=== PATIENT | female | born 1980 | race Caucasian/White ===

== ENCOUNTER → 2017-01-10 | Outpatient (CLI) | payer BC ==
--- NOTE | 2017-01-10 15:31 | RAD ---
Indication: Fall and tailbone pain. Time of exam 1524 hours. Sacrococcygeal alignment appears normal. No fractures are seen. There is no subluxation. The sacral arcuate lines appear intact. The SI joints and symphysis are not widened. Impression: No acute abnormality is detected.
== END | disposition home or self-care (01) ==
LOC: DXRAD 15:05
PROVIDERS: ATTEND Family Medicine
DX: S30.0XXA Contusion of lower back and pelvis, initial encounter (principal); M53.3 Sacrococcygeal disorders, not elsewhere classified; W19.XXXA Unspecified fall, initial encounter; Y93.9 Activity, unspecified; Y92.89 Other specified places as the place of occurrence of the external cause; Y99.8 Other external cause status
CPT/HCPCS: 72220

== ENCOUNTER → 2017-01-15 | Outpatient (CLI) | payer BC ==
--- NOTE | 2017-01-15 10:34 | RAD ---
Examination: Ultrasound pelvis History: History of right-sided pelvic pain, history of ovarian cyst. Comparison: None available Technique: Transabdominal, transvaginal ultrasound examination the pelvis. Findings: The uterus measures 9.0 x 5.2 x 4.1 cm. The endometrium measures 3 mm in thickness. The right ovary measures 3.4 x 2.2 x 2.7 cm. The left ovary measures 4.1 x 1.9 x 3.3 cm. Small cystic structures identified in the cervix likely nabothian cysts. Blood flow identified in the right and left ovaries. Impression: 1. Few nabothian cysts identified in the cervix, otherwise unremarkable exam.
== END | disposition home or self-care (01) ==
LOC: US 09:27
PROVIDERS: ATTEND Family Medicine
DX: N88.8 Other specified noninflammatory disorders of cervix uteri (principal); N83.209 Unspecified ovarian cyst, unspecified side; Z87.42 Personal history of other diseases of the female genital tract
CPT/HCPCS: 76830; 76856

== ENCOUNTER → 2017-03-20 | Outpatient (CLI) | payer BC | LOC: LAB 14:34 | DX: Z00.5 Encounter for examination of potential donor of organ and tissue (principal) ==

== ENCOUNTER → 2018-03-22 | Outpatient (CLI) | payer BC | END | disposition home or self-care (01) | LOC: LAB 10:16 | PROVIDERS: ATTEND Obstetrics & Gynecology Reproductive Endocrinology | DX: E03.9 Hypothyroidism, unspecified (principal) | CPT/HCPCS: 84443 ==

== ENCOUNTER → 2018-10-17 | Outpatient (CLI) | payer BC ==
[2018-10-17 10:05] LABS: BASO # 0.1 x10^3/uL (0.0-0.2); BASO % 1 % (0-3); EOS # 0.2 x10^3/uL (0.0-0.7); EOS % 3 % (0-3); HEMOGLOBIN 13.4 g/dL (12.0-15.5); LYMPH # 1.8 x10^3/uL (1.0-4.8); LYMPH % 23 % (24-48); MEAN CORPUSCULAR HEMOGLOBIN 30 pg (25-35); MEAN CORPUSCULAR HGB CONC 34 g/dL (31-37); MEAN CORPUSCULAR VOLUME 90 fL (79-100); MONO # 0.5 x10^3/uL (0.0-1.1); MONO % 6 % (0-9); NEUT # 5.3 x10^3uL (1.8-7.7); NEUT % 68 % (31-73); PLATELET COUNT 290 x10^3/uL (140-400); RED BLOOD COUNT 4.43 x10^6/uL (3.50-5.40); RED CELL DISTRIBUTION WIDTH 13.8 % (11.5-14.5); WHITE BLOOD COUNT 7.9 x10^3/uL (4.0-11.0)
[2018-10-17 11:10] LABS: SEDIMENTATION RATE 15 (0-25)
== END | disposition home or self-care (01) ==
LOC: LAB 09:20
PROVIDERS: ATTEND Podiatrist Foot & Ankle Surgery
DX: T81.40XA Infection following a procedure, unspecified, initial encounter (principal); X58.XXXA Exposure to other specified factors, initial encounter; Y93.89 Activity, other specified; Y92.89 Other specified places as the place of occurrence of the external cause; Y99.8 Other external cause status
CPT/HCPCS: 36415; 85025; 85651; 86140

== ENCOUNTER → 2019-01-17 | Outpatient (CLI) | payer BC ==
--- NOTE | 2019-01-17 11:06 | RAD ---
DATE: 01/17/2019 EXAM: MAMMO RICKY SCREENING BILATERAL HISTORY: Routine screening COMPARISON: 11/07/2016 This study was interpreted with the benefit of Computerized Aided Detection (CAD). Breast Density: SCATTERED The breast parenchyma shows scattered fibroglandular densities. Breast parenchyma level B. FINDINGS: No new or enlarging breast densities are seen. No suspicious microcalcifications are evident. IMPRESSION: There is no mammographic evidence of malignancy in either breast. BI-RADS CATEGORY: 1 NEGATIVE RECOMMENDED FOLLOW-UP: 12M 12 MONTH FOLLOW-UP PQRS compliance statement: Patient information was entered into a reminder system with a target due date for the next mammogram. Mammography is a sensitive method for finding small breast cancers, but it does not detect them all and is not a substitute for careful clinical examination. A negative mammogram does not negate a clinically suspicious finding and should not result in delay in biopsying a clinically suspicious abnormality. "Our facility is accredited by the [employer] Mammography [employer]."
== END | disposition home or self-care (01) ==
LOC: MAMMO 08:17
PROVIDERS: ATTEND Family Medicine
DX: Z12.31 Encounter for screening mammogram for malignant neoplasm of breast (principal)
CPT/HCPCS: 77063; 77067

== ENCOUNTER → 2020-07-23 | Outpatient (CLI) | payer BC ==
--- NOTE | 2020-07-26 15:42 | RAD ---
DATE: 07/23/2020 2:39 PM EXAM: MAMMO RICKY SCREENING BILATERAL HISTORY: Screening COMPARISON: 01/17/2019 Bilateral CC and MLO views of the breasts were performed. Bilateral breast tomosynthesis was performed in CC and MLO projections. This study was interpreted with the benefit of Computerized Aided Detection (CAD). FINDINGS: Breast Density: SCATTERED The breast parenchyma shows scattered fibroglandular densities. Breast parenchyma level B No suspicious masses, microcalcifications or architectural distortion is present to suggest malignancy in either breast. The visualized axillae are unremarkable. IMPRESSION: No mammographic evidence of malignancy. BI-RADS CATEGORY: 1 NEGATIVE RECOMMENDED FOLLOW-UP: 12M 12 MONTH FOLLOW-UP Annual screening mammography is recommended, unless clinically indicated sooner based on symptoms or change in physical exam. PQRS compliance statement: Patient information was entered into a reminder system with a target due date for the next mammogram. Mammography is a sensitive method for finding small breast cancers, but it does not detect them all and is not a substitute for careful clinical examination. A negative mammogram does not negate a clinically suspicious finding and should not result in delay in biopsying a clinically suspicious abnormality. "Our facility is accredited by the [employer] Mammography Program."
== END ==
LOC: MAMMO 14:32
PROVIDERS: ATTEND Family Medicine
DX: Z12.31 Encounter for screening mammogram for malignant neoplasm of breast (principal)
CPT/HCPCS: 77063; 77067

== ENCOUNTER → 2020-09-13 | Outpatient (CLI) | payer BC ==
--- NOTE | 2020-09-13 20:16 | RAD ---
Three-view left knee radiographs to include AP and lateral radiographs of the left tibia and fibula CLINICAL HISTORY: Left knee and left leg pain. AP, lateral and oblique digital radiographs of the left knee were obtained. AP and lateral digital ra diographs of the left tibia and fibula were obtained. No fracture or dislocation of the left knee is seen. There is no radiographic evidence of a joint effusion. No fracture or dislocation of the left tibia or fibula is seen. No significant degenerative changes a re noted. IMPRESSION: Negative study. Electronically signed by: Cabrera Lacy MD (09/13/2020 8:13 PM) [id number]
== END ==
LOC: DXRAD 09-07 15:17
PROVIDERS: ATTEND Student in an Organized Health Care Education/Training Program
DX: M25.562 Pain in left knee (principal)
CPT/HCPCS: 73562; 73590

== ENCOUNTER 2020-10-22 11:22 | Emergency (ER) | payer BC ==
[~2020-10-22] VITALS: Ht 165.1 cm; Wt 109.0 kg
[2020-10-22 11:31] VITALS: BP 146/100
--- NOTE | 2020-10-22 11:41 | PHYS DOC ---
Past History Past Medical History: Fibromyalgia Past Surgical History: Appendectomy, Cholecystectomy, Other Additional Past Surgical Histo: LEFT FOOT SURGERY X 3 Alcohol Use: None General Adult EDM: Chief Complaint: ANKLE PROBLEM HPI: HPI: 40-year-old female past medical history fibromyalgia and obesity, presents to the ED with complaints of right lateral ankle pain that occured just [employer] after patient rolled her ankle while leaving the dental clinic. Patient states she fell but did not her head or lose consciousness. Cannot recall specific mechanism of injuring her ankle. Has not injured this joint before. No other associated knee or hip pain. Is unable to bear weight. Has not taken any pain medication prior to ED arrival. NKDA. Only prescribed medication is Flexeril. LMP 10/05/20. Denies any alcohol or drug use today, is clinically sober. Review of Systems: Review of Systems: Constitutional: Denies fever or chills Eyes: Denies change in visual acuity HENT: Denies nasal congestion or sore throat Respiratory: Denies cough or shortness of breath Cardiovascular: Denies chest pain or edema GI: Denies abdominal pain, nausea, vomiting, bloody stools or diarrhea : Denies dysuria or hematuria Musculoskeletal: Denies midline back pain or CVA tenderness Integument: Denies rash or diaphoresis Neurologic: Denies headache, midline neck pain, focal weakness or sensory changes Endocrine: Denies polyuria or polydipsia Lymphatic: Denies swollen glands Psychiatric: Denies depression or anxiety Physical Exam: PE: Constitutional: Well developed, well nourished, HENT: Normocephalic, atraumatic, no signs of head trauma Eyes: EOMI, conjunctiva normal, no discharge. Neck: Normal range of motion, supple, Cardiovascular: S1/2 present, regular rhythm Lungs & Thorax: Speaking in full sentences, bilateral equal chest rise, no tachypnea or increased work of breathing Abdomen: soft, no tenderness, Skin: Warm, dry, no erythema, no rash. [] Back: No midline tenderness, no CVA tenderness. [] Extremities: No tenderness, no cyanosis, right DP and PT pulses intact, cap refill less than 1 second, pain over right lateral malleoli with some swelling/no contusions/petechia, also has pain over anterior ankle joint, reports pain with metatarsal palpation "all of them hurt," no pain over right fibular head or right knee, Neurologic: Alert and oriented X 3, normal motor function, normal sensory function, no focal deficits noted. [] Psychologic: Affect normal, judgement normal, mood -has been crying Current Patient Data: Vital Signs: Vital Signs Date Time Temp Pulse Resp B/P (MAP) Pulse Ox O2 Delivery O2 Flow Rate FiO2 10/22/20 11:31 98.8 87 18 146/100 (115) 99 EKG: EKG: [] Radiology/Procedures: Radiology/Procedures: IMAGING REPORT Signed PATIENT: BARRETT MELENDEZ LACCOUNT: [id number] : 1980 LOCATION: ER AGE: 40 SEX: F EXAM STATUS: REG ER ORD. PHYSICIAN: ALIN AGUERO DO REASON: lateal right ankle pain PROCEDURE: FOOT RIGHT 3V Study: 1. XR EXAM OF ANKLE_RIGHT 3VIEWS 2. XR FOOT_RIGHT 3 VIEWS Indication: Right ankle pain. Comparison: None. Findings: Right ankle: No displaced fracture. Minimal irregularity at the lateral talar process but not definitively acute. The ankle mortise is symmetric noting the absence of weightbearing. Anterolateral soft tissue swelling. Right foot: No acute fracture. Small plantar calcaneal spur. Incidental note made of a prominent peroneal tubercle as seen on the oblique view. The Lisfranc alignment is within normal limits again noting the absence of weightbearing. Impression: Right ankle/foot: Anterolateral ankle soft tissue swelling but no fracture is identified. No traumatic malalignment considering nonweightbearing status. Electronically signed by: JIL JONES MD (10/22/2020 12:18 PM) [id number] DICTATED AND SIGNED BY: JIL JONES MD DATE: 10/22/20 1212 CC: WILLOW CASTELLANOS MD; ALIN AGUERO DO ~MTH0 0 Impressions: [PATIENT/GUARDIAN/FAMILY:"Patient"] informed of findings. [findings; splinting em:] applied by []. The splint is checked by [], with [Desc; good/appropriate /adequate/loose:"appropriate"] stabilization of the injury. Distal capillary refill {pe heart capillary fill: "normal"] and distal neurologic function [Neuro:"intact"] Heart Score: Risk Factors: Risk Factors: DM, Current or recent (<one month) smoker, HTN, HLP, family history of CAD, obesity. Risk Scores: Score 0 - 3: 2.5% MACE over next 6 weeks - Discharge Home Score 4 - 6: 20.3% MACE over next 6 weeks - Admit for Clinical Observation Score 7 - 10: 72.7% MACE over next 6 weeks - Early Invasive Strategies Course & Med Decision Making: Course & Med Decision Making Pertinent Labs and Imaging studies reviewed. (See chart for details) Concern for right ankle sprain after twisting her ankle. Patient was provided crutches and a right ankle splint. Recommend rice instructions and [id number] analgesia. Patient should not resolve within a few weeks recommend outpatient nonemergent orthopedic follow-up. Will discharge home with strict ED return precautions were given for severe pain, neurologic deficits or further/repeat injury. Encouraged urgent outpatient follow-up with PMD and orthopedic surgery if pain does not resolve or persist. Life-threatening processes were considered but are low suspicion at this time, given history, physical exam and ED workup. Pt was educated on all prescription medications and adverse effects. All patient's questions were answered and pt was stable at time of discharge. Life/limb-threatening differential includes but is not limited to, avascular necrosis, septic arthritis, malignancy, compartment syndrome, fr acture/ligamentous injury/overuse, decompression sickness, seronegative spondyloarthropathies, trauma including dislocation/fracture, Lyme disease, lupus, arthritis differentials, gout/pseudogout or decompression sickness. I spoken with the patient and her caregivers. I explained the patient's condition, diagnoses and treatment plan based on the information available to me at this time. I have answered the patient and her caregiver's questions and addressed any concerns. The patient and her caregivers have a good understanding of patient's diagnosis, condition and treatment plan as can be expected at this point. Vital signs have been stable. Patient's condition is stable and appropriate for discharge from the emergency department. Patient will pursue further outpatient evaluation with primary care physician or other designated or consulting physician as outlined in the discharge instructions. The patient and/or caregivers are agreeable to this plan of care and follow-up instructions have been explained in detail. The patient and/or caregivers have received these instructions in written form and have expressed an understanding of the discharge instructions. The patient and/or caregivers are aware that any significant change of condition or worsening of symptoms should prompt immediate return to this or the closest emergency department or call to [id number] Disclaimer: Krupa Disclaimer: This electronic medical record was generated, in whole or in part, using a voice recognition dictation system. Departure Departure: Impression: Primary Impression: Right ankle sprain Disposition: 01 DC HOME SELF CARE/HOMELESS Condition: STABLE Referrals: WILLOW CASTELLANOS MD (PCP) Patient Instructions: Ankle Sprain, Crutch Use Additional Instructions: FOLLOW UP WITH ORTHOPEDICS: [facility] [address] [facility], [place] [address] [place] [id number] EMERGENCY DEPARTMENT GENERAL DISCHARGE INSTRUCTIONS Thank you for coming to [facility] (ED) today and trusting us with you care. We trust that you had a positivie experience in our Emergency Department. If you wish to speak to the department management, you may call the director at [phone]. YOUR FOLLOW UP INSTRUCTIONS ARE FOLLOWS: 1. Do you have a private Doctor? If you do not have a private doctor, please ask for a resource list of physicians or clinics that may be able to assist you with follow up care. 2. The Emergency Physician has interpreted your x-rays. The X-Ray specialist will also review them. If there is a change in the findings, you will be notified in 48 hours when at all possible. 3. A lab test or culture has been done, your results will be reviewed and you will be notified if you need a change in treatment. ADDITIONAL INSTRUCTIONS AND INFORMATION: 1. Your care today has been supervised by a physician who is specially trained in emergency care. Many problems require more than one evaluation for a complete diagnosis and treatment. We recommend that you schedule your follow up appointment as recommended to ensure complete treatment of you illness or injury. If you are unable to obtain follow up care and continue to have a problem, or if your condition worsens, we recommend that you return to the ED. 2. We are not able to safely determine your condition over the phone nor are we able to give sound medical advice over the phone. For these safety reasons, if you call for medical advice we will ask you to come to the ED for further evaluation. 3. If you have any questions regarding these discharge instructions please call the ED at [phone]. SAFETY INFORMATION: In the interest of safety, wellness, and injury prevention; we encourage you to wear your sealbelt, if you smoke; quite smoking, and we encourage family to use a protective helmet for bicycling and other sporting events that present an increased risk for head injury. IF YOUR SYMPTOMS WORSEN OR NEW SYMPTOMS DEVELOP, OR YOU HAVE CONCERNS ABOUT YOUR CONDITION; OR IF YOUR CONDITION WORSENS WHILE YOU ARE WAITING FOR YOUR FOLLOW UP APPOINTMENT; EITHER CONTACT YOUR PRIMARY CARE DOCTOR, THE PHYSICIAN WHOSE NAME AND NUMBER YOU WERE GIVEN, OR RETURN TO THE ED IMMEDIATELY. ALIN AGUERO DO Oct 22, 2020 11:41
[2020-10-22] MEDS ORDERED: ACETAMINOPHEN 325 MG TABLET PO ONE (11:45)
[2020-10-22] MEDS ORDERED: IBUPROFEN 600 MG TABLET. PO ONE (11:45)
--- NOTE | 2020-10-22 12:21 | RAD ---
Study: 1. XR EXAM OF ANKLE_RIGHT 3VIEWS 2. XR FOOT_RIGHT 3 VIEWS Indication: Right ankle pain. Comparison: None. Findings: Right ankle: No displaced fracture. Minimal irregularity at the lateral talar process but not definitively acute. The ankle mortise is symmetric noting the absence of weightbearing. Anterolateral soft tissue swellin g. Right foot: No acute fracture. Small plantar calcaneal spur. Incidental note made of a prominent peroneal tubercl e as seen on the oblique view. The Lisfranc alignment is within normal limits again noting the absenc e of weightbearing. Impression: Right ankle/foot: Anterolateral ankle soft tissue swelling but no fracture is identified. No traumatic malalignment con sidering nonweightbearing status. Electronically signed by: JIL JONES MD (10/22/2020 12:18 PM) [id number]
== END 2020-10-22 12:51 | disposition home or self-care (01) ==
LOC: ER 11:22
DX: S93.401A Sprain of unspecified ligament of right ankle, initial encounter (principal); M79.7 Fibromyalgia; W18.39XA Other fall on same level, initial encounter; Y93.89 Activity, other specified; Y92.89 Other specified places as the place of occurrence of the external cause; Y99.8 Other external cause status
CPT/HCPCS: 73610; 73630; 99284; L4350

== ENCOUNTER → 2021-10-26 | Outpatient (CLI) | payer BC ==
--- NOTE | 2021-10-26 09:08 | RAD ---
INDICATION : Routine Screening. COMPARISON: Priors including January 2019 TECHNIQUE: Standard mammogram screening views of the bilateral breasts were obtained with 3D tomosynt hesis. CAD was utilized. FINDINGS: The breasts are scattered density. No definite suspicious mass. IMPRESSION: BI-RADS Category 1: Negative. Recommend repeat screening examination in one year. The patient was placed into the recall system with a suggested recall date for follow up imaging. Mammography is the most sensitive method for finding small breast cancers, but it does not detect the m all and is not a substitute for careful clinical examination. A negative mammogram does not negate a clinically suspicious finding and should not result in delay in biopsying a clinically suspicious abnormality. Electronically signed by: Tristan Reyes MD (10/26/2021 9:06 AM) [id number]
== END ==
LOC: MAMMO 07:44
PROVIDERS: ATTEND Student in an Organized Health Care Education/Training Program
DX: Z12.31 Encounter for screening mammogram for malignant neoplasm of breast (principal)
CPT/HCPCS: 77063; 77067

== ENCOUNTER → 2021-11-08 | Outpatient (CLI) | payer BC | LOC: LAB 08:03 | PROVIDERS: ATTEND Family Medicine | DX: R19.7 Diarrhea, unspecified (principal); R10.9 Unspecified abdominal pain | CPT/HCPCS: 87493 ==